=== PATIENT | female | born 1955 | race African-American/Black ===

== ENCOUNTER 2018-09-09 11:43 | Inpatient (IN) | payer MEDICARE, MEDICAID ==
[~2018-09-09] VITALS: Ht 165.1 cm; Wt 84.1 kg
[2018-09-09] MEDS ORDERED: ONDANSETRON HCL 4MG/2ML INJ IV STA (11:57)
[2018-09-09] MEDS ORDERED: FAMOTIDINE 20MG/2ML VIAL IV STA (11:57)
[2018-09-09] MEDS ORDERED: ASPIRIN 81MG TABLET PO ONE (12:00)
[2018-09-09] MEDS ORDERED: LORAZEPAM 2MG/ML CPJ IV ONE (12:00)
[2018-09-09] MEDS ORDERED: FENTANYL CITRATE/PF 50MCG/ML 2ML VIAL IV ONE (12:00)
[2018-09-09 13:16] LABS: BASOPHILS % 0.9 % (0.0-2.0); EOSINOPHILS % 0.1 % (0.0-5.0); HEMATOCRIT. 45.4 % (36.0-48.0); HEMOGLOBIN. 15.4 g/dL (12.0-16.0); LYMPHOCYTES % 16.3 % (20.0-50.0); MEAN CORPUSCULAR HEMOGLOBIN 33.1 pg (28.0-32.0); MEAN CORPUSCULAR VOLUME 97.3 fL (81.0-99.0); MEAN PLATELET VOLUME 8.5 fl (7.4-10.4); MONOCYTES % 4.3 % (2.0-8.0); NEUTROPHILS % 78.4 % (40.0-76.0); PLATELET 213 x1000/uL (130-400); RED BLOOD CELL COUNT 4.66 mill/uL (4.2-5.4); RED CELL DISTRIBUTION WIDTH 13.8 % (11.6-14.6)
[2018-09-09 13:25] LABS: CHLORIDE 100 mEq/L (98-107)
[2018-09-09] MEDS: SODIUM CHLORIDE 0.9% 1,000 ML IV SCH (14:25)
[2018-09-09] MEDS ORDERED: MAGNESIUM/ALUMINUM HYDROXIDE/SIMETHICONE 30ML UDC PO PRN (14:30)
[2018-09-09] MEDS ORDERED: ACETAMINOPHEN 650MG SUPP PR PRN (14:30)
[2018-09-09] MEDS ORDERED: ONDANSETRON HCL 4MG/2ML INJ IV PRN (14:30)
[2018-09-09] MEDS ORDERED: GUAIFENESIN 200MG/10ML SUGAR FREE UDC PO PRN (14:30)
[2018-09-09] MEDS ORDERED: NA PHOS,M-B/NA PHOS,DI-BA ENEMA 118ML PR PRN (14:30)
[2018-09-09] MEDS ORDERED: CLONIDINE 0.1MG TABLET PO PRN (14:30)
[2018-09-09] MEDS ORDERED: IPRATROPIUM/ALBUTEROL 0.5-3(2.5)MG/3ML NEB INH PRN (14:30)
[2018-09-09] MEDS ORDERED: DIPHENHYDRAMINE 50MG/ML VIAL IV PRN (14:30)
[2018-09-09] MEDS ORDERED: DOCUSATE SODIUM 100MG CAPSULE PO PRN (14:30)
[2018-09-09] MEDS ORDERED: ACETAMINOPHEN 325MG TABLET PO PRN (14:30)
[2018-09-09] MEDS ORDERED: ENOXAPARIN 40MG/0.4ML SYR SUBCUT SCH (17:00)
[2018-09-09 17:11] VITALS: BP 147/77
[2018-09-09 17:38] VITALS: BP 147/77
[2018-09-09] MEDS: FAMOTIDINE 20MG/2ML VIAL IV SCH (17:57)
[2018-09-09] MEDS ORDERED: PNEUMOCOCCAL 23-VAL P-SAC VAC 0.5 ML IM ONE (19:30)
[2018-09-09 20:00] VITALS: BP 116/66
[2018-09-09] MEDS ORDERED: TEMA15CA PO (20:02)
[2018-09-09] MEDS ORDERED: LORA1TAB PO (20:02)
[2018-09-09] MEDS ORDERED: HYDR25TA PO (20:02)
[2018-09-09] MEDS ORDERED: PROM25TA13 PO (20:02)
[2018-09-09] MEDS ORDERED: METO25TA6 PO (20:02)
[2018-09-09] MEDS: SODIUM CHLORIDE 0.9% INJ 3ML FLUSH IVF SCH (21:05)
[2018-09-10] VITALS: BP 121/67
[2018-09-10 01:24] LABS: CLARITY URINE CLEAR (CLEAR); COLOR URINE YELLOW (YELLOW); KETONES URINE NEGATIVE (NEGATIVE); LEUKOCYTE ESTERASE URINE 3+ (NEGATIVE); NITRITE URINE NEGATIVE (NEGATIVE); OCCULT BLOOD URINE NEGATIVE (NEGATIVE); PH URINE 6.5 (4.5-8.0); PROTEIN URINE NEGATIVE (NEGATIVE); SPECIFIC GRAVITY URINE 1.009 (1.005-1.030); UROBILINOGEN URINE 0.2 E.U./dL (0.2-1.0)
[2018-09-10 01:25] LABS: *COCAINE SCREEN URINE NEGATIVE (NEGATIVE); METHADONE URINE SCREEN NEGATIVE (NEGATIVE)
[2018-09-10 01:26] LABS: *AMPHETAMINES SCREEN URINE NEGATIVE (NEGATIVE); *BARBITURATES SCREEN URINE NEGATIVE (NEGATIVE); OPIATES URINE SCREEN NEGATIVE (NEGATIVE); PHENCYCLIDINE URINE SCREEN NEGATIVE (NEGATIVE)
[2018-09-10 01:27] LABS: CANNABINOID URINE SCREEN PRESUMTIVE POSITIVE (NEGATIVE)
[2018-09-10 01:28] LABS: *BENZODIAZEPINES SCREEN URINE NEGATIVE (NEGATIVE)
[2018-09-10 04:00] VITALS: BP 118/70
[2018-09-10 07:07] LABS: BASOPHILS % 0.7 % (0.0-2.0); EOSINOPHILS % 1.1 % (0.0-5.0); HEMATOCRIT. 39.3 % (36.0-48.0); HEMOGLOBIN. 13.2 g/dL (12.0-16.0); LYMPHOCYTES % 32.5 % (20.0-50.0); MEAN CORPUSCULAR HEMOGLOBIN 32.9 pg (28.0-32.0); MEAN CORPUSCULAR VOLUME 97.8 fL (81.0-99.0); MEAN PLATELET VOLUME 8.3 fl (7.4-10.4); MONOCYTES % 8.8 % (2.0-8.0); NEUTROPHILS % 56.9 % (40.0-76.0); PLATELET 191 x1000/uL (130-400); RED BLOOD CELL COUNT 4.02 mill/uL (4.2-5.4); RED CELL DISTRIBUTION WIDTH 14.1 % (11.6-14.6)
[2018-09-10] MEDS: SODIUM CHLORIDE 0.9% INJ 3ML FLUSH IVF SCH ×2 (07:08→14:00)
[2018-09-10] MEDS: SODIUM CHLORIDE 0.9% 1,000 ML IV SCH (07:09)
[2018-09-10 07:31] LABS: CHLORIDE 110 mEq/L (98-107)
[2018-09-10 07:41] LABS: LDL CHOLESTEROL 75 mg/dL (5-100)
[2018-09-10 07:42] LABS: HDL CHOLESTEROL 50 mg/dL (40-59)
[2018-09-10 08:00] VITALS: BP 112/63
[2018-09-10] MEDS: FAMOTIDINE 20MG/2ML VIAL IV SCH (09:03)
[2018-09-10 11:31] LABS: T4 FREE 0.74 ng/dL (0.76-1.46)
[2018-09-10 12:00] VITALS: BP 118/82
[2018-09-10 16:00] VITALS: BP 130/75
[2018-09-10] MEDS ORDERED: POTASSIUM CHLORIDE 20MEQ TABLET SR PO PRN (16:15)
[2018-09-10 16:57] LABS: CREATINE KINASE 127 IU/L (26-192)
[2018-09-10] MEDS ORDERED: ENOXAPARIN 100MG/ML SYR SUBCUT SCH (17:00)
[2018-09-10 20:00] VITALS: BP 99/72
[2018-09-10 23:25] LABS: CREATINE KINASE 131 IU/L (26-192)
[2018-09-10 23:26] LABS: CREATINE KINASE MB FRACTION 1.8 ng/mL (0.5-3.6)
[2018-09-11 00:14] VITALS: BP 126/64
[2018-09-11] MEDS: SODIUM CHLORIDE 0.9% 1,000 ML IV SCH (00:33)
[2018-09-11] MEDS: SODIUM CHLORIDE 0.9% INJ 3ML FLUSH IVF SCH ×3 (00:33→13:03)
[2018-09-11] MEDS: ACETAMINOPHEN 650MG/20.3ML UDC GT PRN ×2 (00:59→09:32)
[2018-09-11 04:00] VITALS: BP 115/79
[2018-09-11 07:27] LABS: CREATINE KINASE 118 IU/L (26-192)
[2018-09-11 07:31] LABS: CREATINE KINASE MB FRACTION 1.3 ng/mL (0.5-3.6)
[2018-09-11 08:00] VITALS: BP 155/88
[2018-09-11] MEDS: FAMOTIDINE 20MG/2ML VIAL IV SCH (09:09)
[2018-09-11 12:00] VITALS: BP 152/88
[2018-09-11] MEDS ORDERED: METOCLOPRAMIDE HCL 10MG/2ML VIAL IV SCH (12:15)
[2018-09-11] MEDS ORDERED: LACTULOSE 20G/30ML UDC PO SCH (12:15)
[2018-09-11] MEDS ORDERED: LEVOFLOXACIN 500MG PREMIX 100 ML IV SCH (13:00)
[2018-09-11] MEDS ORDERED: MAGNESIUM CITRATE 300ML SOLUTION PO SCH (14:00)
[2018-09-11 14:46] VITALS: BP 152/88
[2018-09-11] MEDS ORDERED: ENOXAPARIN 40MG/0.4ML SYR SUBCUT SCH (17:00)
== END 2018-09-11 16:53 | disposition home or self-care (01) | DRG 392 ==
LOC: ER 13:49 → 7WST 14:06 → EDBEDREQ 14:08 → EDBEDREQTM 14:08 → ENRESERV 14:34
PROVIDERS: ADMIT Family Medicine; ATTEND Family Medicine
DX: K57.90 Diverticulosis of intestine, part unspecified, without perforation or abscess without bleeding (principal); E87.6 Hypokalemia; R07.9 Chest pain, unspecified; I10 Essential (primary) hypertension; F12.90 Cannabis use, unspecified, uncomplicated; E78.5 Hyperlipidemia, unspecified; K44.9 Diaphragmatic hernia without obstruction or gangrene; Z79.899 Other long term (current) drug therapy
CPT/HCPCS: 36415; 71045; 74176; 80061; 80305; 82550; 82553; 83036; 83735; 83880; 84439; 84443; 84484; 85379; 90732; 93005; 93306; 96374; 96375; 99291; J1200; J1650; J1956; J2060; J2405; J2765; J3010; J3490